=== PATIENT | female | born 1975 | race African-American/Black ===

== ENCOUNTER 2021-05-17 16:54 | Emergency (ER) | payer SELFPAY ==
[~2021-05-17] VITALS: Ht 162.6 cm; Wt 81.8 kg
[2021-05-17 17:07] VITALS: BP 123/90
== END 2021-05-17 17:19 | disposition left against medical advice (07) | DRG 951 ==
LOC: ED 16:54 → LWOBS 17:18
DX: Z53.21 Procedure and treatment not carried out due to patient leaving prior to being seen by health care provider (principal)